=== PATIENT | male | born 1965 | race Caucasian/White ===

== ENCOUNTER → 2017-01-26 | Day surgery (SDC) | payer OTHER ==
[~2017-01-26] MED LIST: BUPIVACAINE/EPINEPHRINE 0.25% 50 ML VIAL ONE; KETOROLAC TROMETHAMINE 30 MG/ML (IVP) VIAL IV PUSH ONE; LACTATED RINGER'S 1,000 ML BAG IV ONE; MIDAZOLAM HCL 2 MG/2 ML VIAL ONE; ONDANSETRON HCL 4 MG/2 ML VIAL IV PUSH ONE; PROPOFOL 200 MG/20 ML AMP IV ONE; ceFAZolin 2 GM PREMIX 50 ML ONE
--- NOTE | 2017-01-26 15:38 | TN ---
cc: ELIEL MADDEN M.D. DATE OF SURGERY: 01/26/2017 PREOPERATIVE DIAGNOSIS Bilateral inguinal hernia. 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 PROCEDURE Laparoscopic repair bilateral inguinal hernia with mesh. SURGEON Dr. Eliel Madden. ANESTHESIA General. INDICATION This is a pleasant 52-year-old gentleman who was seen in consultation by Dr. Stephan James for evaluation of left inguinal hernia. The patient two years ago lifted a heavy tailgate from a dump truck and had progressive left side groin discomfort. It felt like his left testicle and scrotum were tight and uncomfortable. A pelvic CT demonstrates a large spermatic cord lipoma on the left and a smaller one on the right. INTRAOPERATIVE FINDINGS Large bilateral spermatic cord lipoma. Additionally, a right side direct inguinal hernia. ESTIMATED BLOOD LOSS Less than 10 mL. DESCRIPTION OF PROCEDURE IN DETAIL The patient was identified as Alejandro Portillo taken to the operating room and placed in supine position. Sequential compression devices were placed on bilateral lower extremities. Following induction of adequate general anesthesia the patient's lower abdomen was prepped and draped in the usual sterile fashion with Betadine. A timeout procedure was performed. Following completion of the timeout procedure to everyone's satisfaction within the room, local anesthetic was placed at each incision site. An infraumbilical 2 cm incision was carried out with a scalpel and dissection continued posteriorly to the level of the anterior rectus fascia on the left side. It was incised vertically at its medial border and a preperitoneal plane was developed with the surgeon's finger directed towards the pubic symphysis. The patient was placed in slight Trendelenburg position. The preperitoneal dissecting balloon was placed in the preperitoneal space under direct laparoscopic view and inflated to a total of approximately 35 pumps which allowed for identification of the pubic symphysis, left side Anastacio's ligament and inferior epigastric vessels. The balloon was desufflated and removed and a structural balloon trocar placed in the preperitoneal space, its balloon inflated with CO2 insufflation until a level of 11 mmHg ensued. Two infraumbilical midline 5 mm trocars were then placed in the preperitoneal space under direct laparoscopic view after incision of the skin with a scalpel. Using blunt graspers blunt dissection lateral and posterior to a very fatty appearing spermatic cord was performed. A small indirect inguinal hernia sac was reduced to the base of the spermatic cord. A large amount of fatty tissue intimately associated with the spermatic cord was reduced from the inguinal canal into the preperitoneal space. This was a very large spermatic cord lipoma. There was a big defect at the internal inguinal ring. A 4 x 6 inch piece of [employer] ProLite mesh was cut and an anterolateral slit placed surrounding the spermatic cord and tacked into position with the Capture device. Tacks were placed to approximate the anterolateral slit along the anterior border of Anastacio's ligament. A 2 x 6 inch piece of the ProLite mesh was placed across the anterolateral slit and held in position with the ProTack device. Tacks were placed superolaterally and inferomedially as well as superomedially. Photographs were taken of the completed repair. Attention was turned to the right side. Similar blunt dissection ensued. It was somewhat difficult to identify the anatomic structures due to the large amount of fatty tissue in the preperitoneal space. Ultimately blunt dissection lateral and posterior to the spermatic cord was performed. Adherent peritoneum was reduced to the base of the spermatic cord and a moderate-sized spermatic cord lipoma was reduced. Preperitoneal fatty tissue was then reduced from a direct hernia defect which then allowed for identification of Anastacio's ligament on the right side. A direct hernia pseudo sac was then tacked down with a Capture tack to Anastacio's ligament and a 4 x 6 inch piece of the ProLite mesh with an anterolateral slit was placed around the spermatic cord and tacked into position with the Capture device. Tacks were placed to approximate the anterolateral slit. A 2 x 6 inch piece of the mesh was then placed across the anterolateral slit and tacks were placed superolaterally, superomedially and inferomedially. Photographs were taken of the completed repair. The remaining local anesthetic was placed in the preperitoneal space. A small amount of bloody drainage was suctioned out prior to this. The insufflation was turned off and the suction device was used to suction out the preperitoneal space holding the inferolateral mesh in position. The left preperitoneal fat was then able to sit into the mesh on the superior side of the mesh. The trocars were removed. There was no evidence of bleeding from the trocar sites. The structural balloon trocars were removed and the anterior rectus fascial incision was closed with running 2-0 Vicryl suture. Port site skin incisions were approximated with 4-0 Monocryl subcuticular sutures. Dressings were applied with Mastisol and half-inch brown Steri-Strips. The patient tolerated the procedure without apparent complication. Sponge, needle and instrument counts were correct at the end of the case. MD EBER Aj/GREG /3:01 PM /3:20 PM
== END | disposition home or self-care (01) ==
LOC: ESDC 12:18
PROVIDERS: ATTEND Surgery Trauma Surgery
DX: K40.20 Bilateral inguinal hernia, without obstruction or gangrene, not specified as recurrent (principal); D17.6 Benign lipomatous neoplasm of spermatic cord
CPT/HCPCS: 00840; 49650; C1727; C1781; J0690; J1885; J2250; J2405; J3010; J7120